=== PATIENT | male | born 1995 | race Caucasian/White ===

== ENCOUNTER 2024-02-29 17:52 | Emergency (ER) | payer MEDICAID, SELFPAY ==
[2024-02-29 18:14] VITALS: BP 123/79; PULSE 91; RESP 18; TEMP 37.1; O2SAT 96; BMI 25.9
--- NOTE | 2024-02-29 18:17 | XR_ITS ---
Examination: Foot, left, 3 views Technique: AP, oblique, lateral views foot, 3 views Date and time of exam: February 29, 2024 1823 hrs. Indications: Injury to the foot 3 months ago, foot pain and swelling Findings: Acute comminuted fractures navicular with marked displacement dorsally of a 17 mm fracture fragment Suspicious for fractures involving the lateral cuboid Impression: Acute comminuted displaced fractures navicular Suspicious for fractures lateral cuboid, consider CT scan foot without contrast follow-up
--- NOTE | 2024-02-29 18:17 | XR_ITS ---
EXAMINATION: Ankle, left 3 views . Technique: Ankle AP, oblique, lateral 3 views Date and time of exam: February 29, 2024 1852 hrs. Indications: Injury to the ankle 3 months ago with persistent ankle pain. Findings: Lateral malleolar soft tissue swelling Comminuted displaced fractures navicular, dorsal displacement of a large 17 mm fracture fragment Impression: Acute comminuted displaced navicular fracture
--- NOTE | 2024-02-29 18:18 | PD.EDRME ---
Rapid Medical Screening Exam RME Arrival date/time: 02/29/24 17:52 29 year old male present to ED for c/o of ankle/foot injury I have greeted and performed a focused initial assessment of this patient. A comprehensive ED assessment and evaluation of the patient, analysis of all test results, and completion of the medical decision making process will be conducted by additional ED providers. Chief Complaint: Ankle/Foot Injury Time Seen by Provider: 02/29/24 18:08 Vital signs: Vital Signs Temperature 98.7 F 02/29/24 18:14 Pulse Rate 91 02/29/24 18:14 Respiratory Rate 18 02/29/24 18:14 Blood Pressure 123/79 02/29/24 18:14 Pulse Oximetry (%) 96 02/29/24 18:14 Oxygen Delivery Method Room Air 02/29/24 18:14
[2024-02-29] MEDS: IBUPROFEN TAB 400 MG TABLET 800 MG PO (18:45)
[2024-02-29] MEDS: SERTRALINE HCL 25 MG TABLET 50 MG PO (18:46)
[2024-02-29] MEDS: OLANZapine 5 MG TABLET 10 MG PO (18:47)
--- NOTE | 2024-02-29 22:29 | PC.NURSE ---
CALLED TO DO CT, NO ANSWER AT ER LOBBY OR OUTSIDE ER.
--- NOTE | 2024-02-29 22:46 | PC.NURSE ---
NO ANSWER AT ER LOBBY OR OUTSIDE ER.
--- NOTE | 2024-02-29 23:05 | PC.NURSE ---
NO ANSWER AT ER LOBBY OR OUTSIDE ER.
== END 2024-02-29 23:23 | disposition left against medical advice (07) ==
PROVIDERS: Emergency Provider Emergency Medicine; PCP Family Medicine
DX: S92.252A Displaced fracture of navicular [scaphoid] of left foot, initial encounter for closed fracture (principal); X58.XXXA Exposure to other specified factors, initial encounter; Z53.21 Procedure and treatment not carried out due to patient leaving prior to being seen by health care provider
CPT/HCPCS: 73610; 73630; 99281; A9270

== ENCOUNTER 2024-07-17 16:41 | Emergency (ER) | payer MEDICAID, SELFPAY ==
[2024-07-17 16:41] VITALS: BMI 25.0
[2024-07-17 16:47] VITALS: BP 129/80; PULSE 94; RESP 18; TEMP 36.8; O2SAT 95
--- NOTE | 2024-07-17 17:01 | EDNOTE_ITS ---
ED Wound/Laceration-RME/HPI General Chief Complaint: Wound/Laceration Stated Complaint: LACERATION TO PALM OF LEFT HAND Time Seen by Provider: 07/17/24 16:49 Arrival date/time: 07/17/24 16:41 RME / HPI RME / HPI narrative: 29-year-old male patient came in for evaluation regarding laceration to the left hand palmar aspect. Patient was climbing a tree and hit a sharp object resulting into 3 cm flap-like laceration left hand thenar eminence, patient is able to bend and extend the thumb without any limitation. Tetanus vaccination is unknown. No active bleeding noted incident happened earlier today. Related Data Previous Rx's ?Medication ?Instructions ?Recorded ibuprofen 800 mg tablet (IBU) 800 mg PO Q8H #20 tabs 0 12/07/23 Allergies Allergy/AdvReac Type Severity Reaction Status Date / Time No Known Allergies Allergy Verified 07/17/24 16:43 Review of Systems Review of Systems Narrative Review of Systems: Review of system reviewed and within normal limits except mentioned in HPI ED Exam Narrative Physical exam: VITAL SIGNS: Reviewed. GENERAL APPEARANCE: Alert and interactive, follows commands, no acute distress, HEAD AND FACE: Non-traumatic. ENT: PERRL, pink conjunctivitis, eyelid no trauma, Mucous membrane moist. NECK: Supple, nontender, no nuchal rigidity. RECTAL: Deferred. GENITAL: Deferred. NEUROLOGICAL: Gross motor function intact sensory function intact, Appropriate for age. MUSCULOSKELETAL: low back nontender, full range of motion. EXTREMITIES:+3 cm flap-like laceration, left hand thenar eminence, full range of motion. SKIN: Color pink, dry, no rash, no lacerations, no abrasions, no contusions. LYMPHATICS: Deferred. Course Quality Measures none Orders Category Date Time Status Ibuprofen Tab [Motrin Tab] Med 07/17/24 17:00 Discontinued 800 mg PO X1 ONE Lidocaine 1% 20 ml [Xylocaine 1% 20 ML] Med 07/17/24 17:35 Discontinued 20 ml INFL X1 ONE Lidocaine 1% Pf 5 ml [Xylocaine 1% Pf 5 ml] Med 07/17/24 17:00 Discontinued 10 ml INFL X1 ONE TET,DIP/PERT AC (Adult)-Tdap [Boostrix Adult (Tdap) Med 07/17/24 17:00 Discontinued Vacc] 0.5 ml IMI .ONCE ONE Vital Signs Vital signs: Vital Signs Temperature 98.2 F 07/17/24 16:47 Pulse Rate 94 07/17/24 16:47 Respiratory Rate 18 07/17/24 16:47 Blood Pressure 129/80 07/17/24 16:47 Pulse Oximetry (%) 95 07/17/24 16:47 Oxygen Delivery Method Room Air 07/17/24 16:47 Procedures -ED Laceration Laceration 1: Site: hand (Left) Size (cm): 3 Description: flap Depth: simple, single layer Local Anesthetic: lidocaine 1% Amount of anesthesia used (mL): 5 Pre-repair: wound explored, irrigated extensively and deep structures intact Skin layer closed with: nylon Size (cm): 5-0 Number of sutures: 4 Technique: simple, interrupted Wound / Laceration MDM Narrative MDM Narrative:: 29-year-old male patient came in for evaluation regarding laceration to the left hand palmar aspect. Patient was climbing a tree and hit a sharp object resulting into 3 cm flap-like laceration left hand thenar eminence, patient is able to bend and extend the thumb without any limitation. Tetanus vaccination is unknown. No active bleeding noted incident happened earlier today. Repair and suturing was done manage see procedure notes. Patient received Boostrix Motrin. Imaging is not needed at this time patient not showing any bony abnormality Patient tolerated a pressure well Patient data External records reviewed:: None Clinical information provided by:: patient and family Social determinants that could affect healthcare access:: none Patient has the following chronic illnesses:: None How is presenting disease/condition affected by chronic disease/condition?: no chronic disease Evaluation data The following diagnostics were reviewed and interpreted by me:: other (specify) Lab and/or radiology exams considered but not ordered:: None Interpretation Summary: None Medications / Prescriptions Medications or Prescriptions considered but not ordered:: None Medication administrations:: Medication Administration History Discontinued Medications Diphtheria/Tetanus/Acell Pertussis (Diphth,Pertuss(Acell),Tet Vac 0.5 Ml Syr- Adult) 0.5 ml IMi .ONCE ONE Stop: 07/17/24 17:01 Last Admin: 07/17/24 17:28 Dose: 0.5 ml Documented By: ILAN Ibuprofen (Ibuprofen Tab 400 Mg Tablet) 800 mg PO X1 ONE Stop: 07/17/24 17:01 Last Admin: 07/17/24 17:31 Dose: 800 mg Documented By: ILAN Lidocaine HCl (Lidocaine Inj Pf 1% 5 Ml Vial) 10 ml INFL X1 ONE Stop: 07/17/24 17:01 Last Admin: 07/17/24 17:36 Dose: Not Given Documented By: ILAN Non-Admin Reason: Cancelled by Provider Lidocaine HCl (Lidocaine Hcl 1% 20 Ml Vial) 20 ml INFL X1 ONE Stop: 07/17/24 17:36 Last Admin: 07/17/24 17:42 Dose: 20 ml Documented By: ILAN Boostrix, Motrin Consultations Consultation(s) initiated? (list below): No Diagnosis Wound Differential Diagnosis: laceration, abrasion and avulsion of skin Most likely diagnosis given after review of the tests above:: Hand laceration Admission Indicated Admission indicated?: not indicated Admission Request Was there a request for admission?: No Disposition Plan Disposition Plan: Discharge Discharge Attestation Discharge Attestation: The patient and all family members were given an opportunity to ask questions and understood the discharge instructions. Discharge instructions specifically effects, indications for sooner follow up or return to the emergency department, and the expected course of current diagnosis. Patient condition: Stable Discharge Plan Plan Patient Disposition: HOME (Self Care) Disposition Comment: Stable Prescriptions/Referrals Prescriptions/Med Rec: No Action ibuprofen [IBU] 800 mg tablet 800 mg PO Q8H Qty: 20 0RF Problem List Clinical Impression: Laceration of hand, left Patient/Caregiver Discharge Instructions Discharge Activity: activity as tolerated Education Materials: ED Laceration: All Closures Additional Instructions: Thank you for the opportunity for serving you today. You are stable for discharged . You are advised to: Follow-up with your PCP in 1 to 2 days Return to ED for worsening of symptoms Increase oral fluids Daily dressing with bacitracin as needed, for removal of sutures in 7 to 10 days Print Language: [place] Stand Alone Forms: [facility] Award Info., Patient Portal Info Letter
[2024-07-17] MEDS: DIPHTH,PERTUSS(ACELL),TET VAC 0.5 ML SYR- ADULT IMi (17:28)
[2024-07-17] MEDS: IBUPROFEN TAB 400 MG TABLET 800 MG PO (17:31)
[2024-07-17] MEDS: LIDOCAINE HCL 1% 20 ML VIAL INFL (17:42)
== END 2024-07-17 17:55 | disposition home or self-care (01) ==
LOC: SERX 17:59
PROVIDERS: Emergency Provider Emergency Medicine
DX: S61.412A Laceration without foreign body of left hand, initial encounter (principal); W26.9XXA Contact with unspecified sharp object(s), initial encounter; Y93.39 Activity, other involving climbing, rappelling and jumping off; Z23 Encounter for immunization
CPT/HCPCS: 12002; 90471; 90715; 99283; J3490; A9270

== ENCOUNTER 2024-07-24 13:27 | Emergency (ER) | payer MEDICAID, SELFPAY ==
[2024-07-24 13:27] VITALS: BMI 25.0
--- NOTE | 2024-07-24 13:42 | PC.NURSE ---
@1342- PT CALLED FROM [facility]; NO ANSWER AT THIS TIME. @1400- PT CALLED AGAIN FROM [facility]; NO ANSWER AT THIS TIME. @1500- PT CALLED FROM [facility] FOR LAST CALL; NO ANSWER AT THIS TIME. PT ELOPED.
--- NOTE | 2024-07-24 13:57 | PC.NURSE ---
called for pt from lobby/outside, no [id number]@[phone]
--- NOTE | 2024-07-24 14:03 | PC.NURSE ---
called for pt from lobby/outside, no [id number]@[phone]
--- NOTE | 2024-07-24 14:19 | PC.NURSE ---
called for pt from lobby/outside, no answerx3@[phone]
== END 2024-07-24 16:03 | disposition left against medical advice (07) ==
PROVIDERS: Emergency Provider Emergency Medicine
DX: Z53.21 Procedure and treatment not carried out due to patient leaving prior to being seen by health care provider (principal)